=== PATIENT | male | born 1970 | race Caucasian/White ===

== ENCOUNTER → 2018-05-08 | Outpatient (CLI) | payer OTHER ==
--- NOTE | 2018-05-08 09:37 | CT ---
EXAMINATION TYPE: CT chest wo con DATE OF EXAM: 05/08/2018 COMPARISON: Correlation CT abdomen 10/07/2010 HISTORY: 48-year-old male with abnormal findings on diagnostic imaging of right testicle. Abnormal x- ray TECHNIQUE: Contiguous axial scanning of the chest without IV contrast. Coronal and sagittal reconstru ctions performed. CT DLP: 683.30 mGycm Automated exposure control for dose reduction was used. FINDINGS: Heart normal size without pericardial effusion. Aorta normal caliber with conventional arch vessel branching anatomy. No thoracic lymphadenopathy. Calcified right hilar lymph nodes are present compatible with prior gran ulomatous disease. There is a calcified granuloma in the anterior right midlung. No consolidation or pleural effusion. Nonspecific 6 mm medial right midlung pulmonary nodule, axial image 23. 3 mm peripheral left midlung pulmonary nodule axial image 40. There is a moderate-sized hernia involving a third of the stomach. Visualized upper abdomen shows no gross anomaly. Bones: Degenerative changes at the shoulders and mild degenerative disc disease throughout the thorac ic spine. Slight accentuated lower thoracic kyphosis. IMPRESSION: 1. PRIOR GRANULOMATOUS DISEASE. 2. A NONSPECIFIC 6 MM RIGHT MIDLUNG AND 3 MM LEFT MID LUNG PULMONARY NODULES. 6-12 MONTH FOLLOW UP EX AM CAN BE PERFORMED. 3. MODERATE SIZE HIATAL HERNIA INVOLVING A THIRD OF THE STOMACH.
== END ==
LOC: RADCTMAIN 07:31
PROVIDERS: ATTEND Family Medicine
DX: R91.8 Other nonspecific abnormal finding of lung field (principal); J20.9 Acute bronchitis, unspecified
CPT/HCPCS: 71250

== ENCOUNTER → 2018-06-04 | Outpatient (CLI) | payer OTHER | LOC: CPPFTMAIN 10:29 | PROVIDERS: ATTEND Family Medicine | DX: J44.9 Chronic obstructive pulmonary disease, unspecified (principal) | CPT/HCPCS: 94060; 94726; 94729 ==

== ENCOUNTER → 2018-07-12 | Outpatient (CLI) | payer OTHER ==
--- NOTE | 2018-07-12 14:35 | CT ---
EXAMINATION TYPE: CT brain wo con DATE OF EXAM: 07/12/2018 COMPARISON: NONE HISTORY: Left eye bruising without injury CT DLP: 1072.3 mGycm. Automated Exposure Control for Dose Reduction was Utilized. TECHNIQUE: CT scan of the head is performed without contrast. FINDINGS: There is no acute intracranial hemorrhage, mass effect, or midline shift identified. The ventricles and sulci are within normal limits in size. No suspicious extra-axial fluid collection i s seen. The globes are intact. Orbits appear grossly unremarkable. Lenses are symmetric. No periorbit al hematoma or inflammatory fat stranding. Mild mucosal thickening is seen within the maxillary sinus es, ethmoid sinuses, and sphenoid sinus with mucosal retention cyst in the sphenoid sinus. Frontal si nuses are hypoplastic. Mastoid air cells are well aerated. Calvarium appears intact. Rightward nasal septal deviation and a} nasal septal spur are seen. IMPRESSION: 1. No acute intracranial hemorrhage, mass effect, or midline shift is seen. 2. No periorbital hematoma, periorbital fat stranding, or post septal orbital mass is seen. 3. Overall moderate pansinusitis.
== END | disposition home or self-care (01) ==
LOC: RADCTMAIN 14:07
PROVIDERS: ATTEND Nurse Practitioner Adult Health
DX: R20.0 Anesthesia of skin (principal)
CPT/HCPCS: 70450

== ENCOUNTER 2018-09-13 07:30 | Day surgery (SDC) | payer OTHER ==
[2018-09-12 11:51] VITALS: BMI 36.6
[~2018-09-13 07:30] MED LIST: LACTATED RINGERS 1,000 ML IV SCH
[2018-09-13 08:02] VITALS: RESP 16; TEMP 96.7
[2018-09-13] MEDS ORDERED: LIDOCAINE 1% INJ 10MG/ML (20 ML MDV) ONE (09:08)
[2018-09-13] MEDS ORDERED: GLYCOPYRROLATE 0.2 MG/ML 2 ML VIAL ONE (09:08)
[2018-09-13] MEDS ORDERED: PROPOFOL 10 MG/ML 20 ML VIAL IV ONE (09:08)
--- NOTE | 2018-09-13 09:29 | P.PCN ---
Date of Procedure: 09/13/18 Procedure(s) Performed: Brief history: Patient is a pleasant 48-year-old white male, scheduled for an elective upper endoscopy as well as colonoscopy as a part of evaluation of evaluation of long- standing history of GERD and screening for colorectal neoplasia. Procedure performed: Esophagogastroduodenoscopy with biopsy Colonoscopy Preoperative diagnosis: GERD/screening for colon cancer Anesthesia: MAC Procedure: After informed consent was obtained from the patient was brought into the endos copy unit and IV sedation was administered by anesthesia under continuous monitoring. Initially upper endoscopy was done. The Olympus GF 160 video endoscope was inserted inserted into the mouth and esophagus intubated without any difficulty and was gradually advanced into the stomach and duodenum and carefully examined. The bulb and second part of the duodenum appeared normal. The scope was then withdrawn into the stomach adequately insufflated with air and upon careful examination the antrum had mild gastritis and biopsies were done from this area. The body, cardia and fundus appeared normal. The scope was then withdrawn into the esophagus. Moderate size hiatal hernia noted. The GE junction was located at 37 cm to the incisors. It appeared regular with no erythema erosions or ulcerations. Rest of the esophagus appeared normal. In the proximal cervical esophagus at 20 cm from the incisors there was a 3 mm esophageal polyp identified which was biopsied. Patient tolerated the procedure well. At this time the patient continued to remain sedation. Initial digital rectal examination was normal. Olympus CF 160 video colonoscope was then inserted into the rectum and gradually advanced to the cecum without any difficulty. Careful examination was performed as the scope was gradually being withdrawn. The prep was excellent. The cecum, ascending colon, transverse colon, descending colon, sigmoid colon and rectum appeared normal. Retroflexion was performed in the rectum and no lesions were noted. Patient tolerated the procedure well. Impression: 1. Upper endoscopy revealed mild antral gastritis and moderate size hiatal hernia. Small proximal esophageal polyp status post biopsy 2. Colonoscopy was essentially within normal limits with no evidence of colitis . Neoplasia Recommendations: Findings of this examination were discussed with the patient as well as is family. He was advised to follow with the biopsy results. He can have a repeat screening colonoscopy in 10 years
[2018-09-13 09:54] VITALS: BP 123/85; PULSE 50
== END 2018-09-13 10:25 | disposition home or self-care (01) ==
LOC: ORWHC2ENDO 07:30
PROVIDERS: ATTEND Internal Medicine Gastroenterology
DX: Z12.11 Encounter for screening for malignant neoplasm of colon (principal); K29.50 Unspecified chronic gastritis without bleeding; K44.9 Diaphragmatic hernia without obstruction or gangrene; K22.8 Other specified diseases of esophagus; K21.9 Gastro-esophageal reflux disease without esophagitis; J45.909 Unspecified asthma, uncomplicated; Z79.899 Other long term (current) drug therapy
CPT/HCPCS: 88305; 43239; J2001; J2704; G0121

== ENCOUNTER → 2018-11-11 | Outpatient (CLI) | payer OTHER ==
--- NOTE | 2018-11-11 13:51 | CT ---
EXAMINATION TYPE: CT chest wo con DATE OF EXAM: 11/11/2018 COMPARISON: 05/08/2018 HISTORY: Follow up nodule per patient. No chest complaints CT DLP: 839 mGycm, Automated exposure control for dose reduction was used. CONTRAST: Performed injected with 0 mL of Isovue 300. TECHNIQUE: Axial images were obtained at 5 mm thick sections. Reconstructed images are reviewed on [facility] computer in the coronal plane. FINDINGS: Portion of the thyroid visualized is normal. No suspicious lung nodules or focal infiltrates are present. There is a calcified granuloma within t he right middle lobe measuring 0.6 cm. Right hilar calcified adenopathy may be present. There is a 0.6 cm long nodular density adjacent to the proximal azygos vein series 3 image 26 this wa s present previously. The punctate densities within the periphery of the left midlung is stable. No enlarged mediastinal or hilar adenopathy is evident. The ascending aorta diameter at the level o f the main pulmonary artery is 3.7 cm. The main pulmonary artery diameter at the bifurcation is 2.[address] sections are obtained through the upper abdomen. Abdomen is essentially unremarkable. Ther e is a moderate size hiatal hernia present. IMPRESSIONS: 1. Stable appearing nodules discussed above. Confirmation of stability over the course of 2 years is recommended.
== END | disposition home or self-care (01) ==
LOC: RADCTMAIN 11:25
PROVIDERS: ATTEND Family Medicine
DX: R91.8 Other nonspecific abnormal finding of lung field (principal)
CPT/HCPCS: 71250

== ENCOUNTER → 2020-05-21 | Outpatient (CLI) | payer OTHER ==
--- NOTE | 2020-05-22 11:59 | US ---
EXAMINATION TYPE: US kidneys/renal and bladder DATE OF EXAM: 05/21/2020 COMPARISON: CT abdomen and pelvis 2010. CLINICAL HISTORY: R94.4 Decreased renal function. father had renal mass, no symptoms per patient EXAM MEASUREMENTS: Right Kidney: 11.5 x 5.7 x 5.2 cm Left Kidney: 11.7 x 5.0 x 6.2 cm Right Kidney: No hydronephrosis or masses seen Left Kidney: No hydronephrosis or masses seen Bladder: wnl There is no evidence for hydronephrosis at this point in time. No nephrolithiasis is seen. No lindsay s are identified on images saved. The urinary bladder is satisfactorily distended. Bilateral ureter al jets are not seen. IMPRESSION: No hydronephrosis is noted bilaterally.
== END | disposition home or self-care (01) ==
LOC: RADUSWWP 16:12
PROVIDERS: ATTEND Family Medicine
DX: R94.4 Abnormal results of kidney function studies (principal)
CPT/HCPCS: 76770

== ENCOUNTER → 2020-12-27 | Outpatient (CLI) | payer OTHER ==
--- NOTE | 2020-12-27 08:18 | CT ---
EXAMINATION TYPE: CT chest wo con DATE OF EXAM: 12/27/2020 COMPARISON: Chest CT November 11, 2018 and May 08, 2018 HISTORY: Lung Nodules CT DLP: 682.9 mGycm. Automated Exposure Control for Dose Reduction was Utilized. TECHNIQUE: CT scan of the thorax is performed without IV contrast. FINDINGS: LUNGS:. Stable 7 x 4 mm central right upper to mid lung nodule axial image 19. Stable benign calcif ied 6 mm right mid lung nodule anteriorly on axial image 25. Stable 3 to 4 mm noncalcified nodule inf erior medial to this axial image 28. There is stable to 3 mm peripheral left lower lobe nodule axial image 38. No new or enlarging greater than 5 mm pulmonary nodules. No pleural effusion or pneumothora x seen. The tracheobronchial tree is patent. MEDIASTINUM: Lack of IV contrast is noted to limit evaluation for mediastinal and especially hilar ad enopathy. There are no definitive new Greater than 1 cm noncalcified mediastinal lymph nodes. Calcifi ed subcentimeter anterior right hilar lymph nodes are redemonstrated. No cardiomegaly or pericardial effusion is seen. Stable moderate size fixed hiatal hernia with abnormal twisting of herniated stoma ch . OTHER: Slight scoliotic curvature with moderate multilevel spine redemonstrated. IMPRESSION: Evidence of old granulomatous disease. Stable scattered small noncalcified nodules over 2 years consistent with benign etiology.
== END | disposition home or self-care (01) ==
LOC: RADCTMAIN 07:12
PROVIDERS: ATTEND Family Medicine
DX: J98.4 Other disorders of lung (principal); R91.8 Other nonspecific abnormal finding of lung field
CPT/HCPCS: 71250